=== PATIENT | female | born 1950 | race Caucasian/White ===

== ENCOUNTER 2019-02-17 09:55 | Day surgery (SDC) | payer OTHER ==
[2019-02-13 11:57] VITALS: BMI 27.8
[2019-02-17] MEDS ORDERED: PROPOFOL 20 ML ONE ×2 (11:26)
[2019-02-17 12:16] VITALS: TEMP 97.4
[2019-02-17 13:29] VITALS: BP 106/76; PULSE 62
--- NOTE | 2019-02-19 16:22 | PATH ---
Surgical Pathology Report Patient Name: MARIE MANN [facility] Rec. #: [id number] /Age/Gender: 1950 (Age: 68) / F Account: [id number] Location: [facility] Taken: 02/17/2019 Received: 02/17/2019 Reported: 02/19/2019 Physicians: Jd Rosario M.D. Specimen(s) Received A: SECOND PORTION DUODENUM B: ANTRUM C: RIGHT COLON POLYP Clinical History GERD, screening Postoperative diagnosis: Gastritis, hiatal hernia, colon polyp Final Diagnosis A. DUODENUM, SECOND PORTION, BIOPSY: DUODENAL MUCOSA WITH MILD CHRONIC DUODENITIS AND PRESERVED VILLOUS ARCHITECTURE. B. GASTRIC ANTRUM, BIOPSY: GASTRIC ANTRAL MUCOSA WITH MILD CHRONIC GASTRITIS. IMMUNOHISTOCHEMICAL STAIN FOR H. PYLORI IS NEGATIVE. C. COLON, RIGHT, BIOPSY: TUBULAR ADENOMA. Electronically Signed Georgia Miller M.D. Gross Description A. Received in formalin, labeled "biopsy second portion of duodenum" are 3 bond, irregular portions of soft tissue ranging from 0.1-0.3 cm. in greatest dimension. The specimens are submitted in toto in one cassette. B. Received in formalin, labeled "biopsy gastric antrum" are 2 bond, irregular portions of soft tissue measuring 0.3 and 0.4 cm. in greatest dimension. The specimens are submitted in toto in one cassette. C. Received in formalin, labeled "biopsy polyp right colon" is a bond, irregular portion of soft tissue measuring 0.7 cm. in greatest dimension. The specimen is submitted in toto in one cassette. 02/18/2019 [facility]02/18/2019
== END 2019-02-17 12:40 | disposition home or self-care (01) ==
LOC: FASU-ENDO 09:55
PROVIDERS: ATTEND Internal Medicine Gastroenterology
PROC: 0DB98ZX Excision of Duodenum, Via Natural or Artificial Opening Endoscopic, Diagnostic (ICD-10-PCS; 2019-02-17)
PROC: 0DB68ZX Excision of Stomach, Via Natural or Artificial Opening Endoscopic, Diagnostic (ICD-10-PCS; 2019-02-17)
PROC: 0DBK8ZX Excision of Ascending Colon, Via Natural or Artificial Opening Endoscopic, Diagnostic (ICD-10-PCS; principal; 2019-02-17 11:39)
DX: Z86.010 Personal history of colon polyps (principal); D12.2 Benign neoplasm of ascending colon; K29.50 Unspecified chronic gastritis without bleeding; K29.80 Duodenitis without bleeding; K44.9 Diaphragmatic hernia without obstruction or gangrene
CPT/HCPCS: 82962; 88305-TC; 88342-TC

== ENCOUNTER 2021-12-19 08:56 | Day surgery (SDC) | payer OTHER ==
[2021-12-19] MEDS ORDERED: PROPOFOL 20 ML ONE ×3 (09:34)
[2021-12-19] MEDS ORDERED: ONDANSETRON 4 MG/2 ML VIAL ONE (09:54)
[2021-12-19] MEDS ORDERED: METOCLOPRAMIDE HCL INJECTION 10 MG/2 ML VIAL ONE (09:59)
[2021-12-19 11:15] VITALS: BP 129/83; PULSE 85; TEMP 97.8
== END 2021-12-19 11:15 | disposition home or self-care (01) ==
LOC: FASU-ENDO 08:56
PROVIDERS: ATTEND Internal Medicine Gastroenterology
PROC: 0DB98ZX Excision of Duodenum, Via Natural or Artificial Opening Endoscopic, Diagnostic (ICD-10-PCS; 2021-12-19)
PROC: 0DB68ZX Excision of Stomach, Via Natural or Artificial Opening Endoscopic, Diagnostic (ICD-10-PCS; 2021-12-19)
PROC: 0DB38ZX Excision of Lower Esophagus, Via Natural or Artificial Opening Endoscopic, Diagnostic (ICD-10-PCS; 2021-12-19)
PROC: 0DJD8ZZ Inspection of Lower Intestinal Tract, Via Natural or Artificial Opening Endoscopic (ICD-10-PCS; principal; 2021-12-19 10:08)
DX: Z86.010 Personal history of colon polyps (principal); K29.80 Duodenitis without bleeding; K29.50 Unspecified chronic gastritis without bleeding; K21.00 Gastro-esophageal reflux disease with esophagitis, without bleeding; R12 Heartburn
CPT/HCPCS: 43239; G0105; 82962; 88305-TC; 88312-TC; 88342-TC